=== PATIENT | male | born 1940 | race Caucasian/White ===

== ENCOUNTER 2021-01-09 12:55 | Outpatient (CLI) | payer MEDICARE ==
[2021-01-09] MEDS ORDERED: METO50TA82 PO (13:25)
[2021-01-09] MEDS ORDERED: OMEP20TA62 PO (13:25)
[2021-01-09] MEDS ORDERED: LOSA25TA25 PO (13:25)
[2021-01-09] MEDS ORDERED: BIFI4CAP PO (13:25)
[2021-01-09] MEDS ORDERED: ASPI81TA45 PO (13:25)
[2021-01-09] MEDS ORDERED: METF850T10 PO (13:25)
[2021-01-09] MEDS ORDERED: [UNRECOGNIZED DRUG - CODE] PO (13:25)
[2021-01-09] MEDS ORDERED: LEVE100020 PO (13:25)
[2021-01-09] MEDS ORDERED: MILK175C5 PO (13:25)
[2021-01-09 14:09] LABS: ANION GAP 5 mmol/L (5-15); CALCIUM 9.1 mg/dL (8.5-10.1); CHLORIDE 106 mmol/L (98-107)
[2021-01-09 14:13] LABS: ALANINE AMINOTRANSFERASE 19 U/L (12-78); ALKALINE PHOSPHATASE 73 U/L (45-117); BILIRUBIN,TOTAL 0.4 mg/dL (0.2-1.0); CREATININE 0.98 mg/dL (0.7-1.3); TOTAL PROTEIN 7.8 g/dL (6.4-8.2)
== END 2021-01-09 23:59 | disposition home or self-care (01) ==
LOC: STAR 12:55
PROVIDERS: ATTEND Internal Medicine
DX: Z01.818 Encounter for other preprocedural examination (principal); K86.2 Cyst of pancreas; R97.0 Elevated carcinoembryonic antigen [CEA]; I49.1 Atrial premature depolarization
CPT/HCPCS: 36415; 80053; 93005

== ENCOUNTER 2021-01-13 11:38 | Day surgery (SDC) | payer MEDICARE ==
[~2021-01-13] VITALS: Ht 175.3 cm; Wt 75.0 kg
[~2021-01-13 11:38] MED LIST: ASPI81TA45 PO; BIFI4CAP PO; LEVE100020 PO; LOSA25TA25 PO; METF850T10 PO; METO50TA82 PO; MILK175C5 PO; OMEP20TA62 PO; [UNRECOGNIZED DRUG - CODE] PO
[2021-01-13] MEDS ORDERED: CHLORHEXIDINE 15 ML UDC PO ONE (12:00)
[2021-01-13] MEDS ORDERED: LACTATED RINGERS 1,000 ML IV SCH (12:00)
[2021-01-13 12:08] VITALS: BP 164/92
[2021-01-13] MEDS ORDERED: CHLORHEXIDINE 15 ML UDC ONE (12:19)
[2021-01-13] MEDS ORDERED: LABETALOL 5MG/ML, 20ML IV PRN (12:30)
[2021-01-13] MEDS ORDERED: ONDANSETRON 2MG/ML, 2ML IVPush PRN (12:30)
[2021-01-13] MEDS ORDERED: FENTANYL PF 100 MCG/2ML IV PRN (12:30)
[2021-01-13] MEDS ORDERED: hydrALAzine 20 MG/ML, 1ML IV PRN (12:30)
[2021-01-13] MEDS ORDERED: PROPOFOL 10 MG/ML, 20ML ONE ×3 (13:24→13:32)
[2021-01-13] MEDS ORDERED: CEFAZOLIN 1,000 MG ONE ×2 (13:32)
== END 2021-01-13 15:15 | disposition home or self-care (01) ==
LOC: OUT 11:38
PROVIDERS: ATTEND Internal Medicine
DX: K86.2 Cyst of pancreas (principal); K22.70 Barrett's esophagus without dysplasia; K21.9 Gastro-esophageal reflux disease without esophagitis; I10 Essential (primary) hypertension; E78.5 Hyperlipidemia, unspecified; G40.909 Epilepsy, unspecified, not intractable, without status epilepticus; E11.9 Type 2 diabetes mellitus without complications; Z79.82 Long term (current) use of aspirin; Z79.899 Other long term (current) drug therapy; Z87.891 Personal history of nicotine dependence; Z88.8 Allergy status to other drugs, medicaments and biological substances; Z90.49 Acquired absence of other specified parts of digestive tract
CPT/HCPCS: 43239; 43242; 82962; 88305; J0690; J2704; J7120; 82150; 82378